=== PATIENT | male | born 1950 | race Caucasian/White ===

== ENCOUNTER 2024-05-15 09:09 | Day surgery (SDC) | payer MEDICARE, OTHER ==
[2024-05-15 09:30] VITALS: RESP 18
[2024-05-15] MEDS: Lactated Ringers 1,000 ML IV SCH (09:37)
[2024-05-15 10:33] LABS: ANION GAP 18.3 MEQ/L (5-15); Calcium 9.7 mg/dL (8.4-10.2); Creatinine 1 1.27 mg/dL (0.66-1.25); EST GLOMERULAR FILTRATION RATE 59.7 ML/MIN
[2024-05-15] MEDS ORDERED: Xylocaine-Mpf 2% 5 Ml Vial ONE (12:08)
[2024-05-15] MEDS ORDERED: propofoL IV ONE (12:08)
[2024-05-15 12:49] VITALS: TEMP 98.1
[2024-05-15 13:00] VITALS: BP 121/77; PULSE 64; O2SAT 98
--- NOTE | 2024-05-16 14:00 | OP ---
SURGERY DATE/TIME: 05/15/2024 [id number] PREOPERATIVE DIAGNOSIS: History of polyps 12 years ago. POSTOPERATIVE DIAGNOSES: 1) Colon polyps. 2) Diverticulosis. PROCEDURE: Colonoscopy with multiple polypectomies. SURGEON: Kishore Wang MD ANESTHESIA: IV anesthesia. CONDITION: Stable. COMPLICATIONS: None. SPECIMENS: As below. INDICATION: The patient presents that it has been 12 years since colonoscopy. He did have polyps at that time. He is overdue for surveillance just for that. He elected to proceed with colonoscopy. FINDINGS: As below. DESCRIPTION OF PROCEDURE AND FINDINGS: Patient was brought to the endoscopy suite. Routinely positioned and prepped. IV anesthesia induced by Anesthesia. On external exam, he does have some hemorrhoids. The colonoscope was inserted and advanced to the cecum, confirmed by the ileocecal valve and the appendiceal orifice. Withdrawal time was greater than 6 minutes. He does have a good preparation, Aronchick scale. On withdrawal, there are multiple polyps removed. 1) Cecal polyps 4 mm and 8 mm taken with snare, cold and hot. 2) Transverse polyps 4 mm x2 and 8 mm taken with snare. 3) Rectosigmoid polyp 3 mm taken with cold forceps. Retroflexion was normal. Patient tolerated the procedure well, was taken to Recovery in stable condition.
== END 2024-05-15 13:07 | disposition home or self-care (01) ==
LOC: SDC 09:09
PROVIDERS: ATTEND Surgery
DX: Z09 Encounter for follow-up examination after completed treatment for conditions other than malignant neoplasm (principal); Z86.0100 Personal history of colon polyps, unspecified; K63.5 Polyp of colon; K57.30 Diverticulosis of large intestine without perforation or abscess without bleeding; K64.4 Residual hemorrhoidal skin tags
CPT/HCPCS: 36415; 80048; 93005; 99100; J2704